=== PATIENT | female | born 1935 | race Caucasian/White ===

== ENCOUNTER 2019-04-23 11:21 | Observation (INO) ==
[2019-04-23] MEDS ORDERED: SODIUM CHLORIDE 0.9% 1,000 ML IV STA (12:40)
[2019-04-23 13:32] LABS: Basophils % 0.5 % (0.0-0.8); Eosinophils # 0.2 10*3/uL (0.0-0.87); Hematocrit 34.5 VOL% (35.7-47.0); Hemoglobin 10.8 GM/DL (12.0-16.0); Immature Granulocytes % 0.5 %; Immature Granulocytes Absolute 0.04 #; Lymphocytes # 1.3 10*3/uL (1.4-4.0); Lymphocytes % 16.1 % (21.3-54.2); Mean Corpuscular HGB Conc 31.3 GM/DL (32-36); Mean Corpuscular Volume 95.6 FL (87-102); Mean Platelet Volume 9.7 FL (9.6-12.0); Monocytes % 7.3 % (1.7-12.7); Neutrophils % 72.6 % (38.7-73.9); Platelet Count 245 T/CUMM (130-400); Red Blood Count 3.61 MC/CUMM (3.8-5.5); Red Cell Distribution Width 13.4 % (9.3-17.3); White Blood Count 8.1 T/CUMM (4-12)
[2019-04-23 13:48] LABS: INR 0.9; PT Patient Result 10.3 SECS; Partial Thromboplastin Time 23.1 SECS (0-40)
[2019-04-23 13:55] LABS: Alanine Aminotransferase 19 U/L (13-56); Albumin 3.3 G/DL (3.4-5.0); Alkaline Phosphatase 100 U/L (45-117); Aspartate Amino Transferase 16 U/L (0-37); Blood Urea Nitrogen 26 MG/DL (7-18); Calcium 9.2 MG/DL (8.5-10.1); Glucose 108 MG/DL (74-106); Osmolality,Calculated 288.1 MOS/KG (273-304); Total Protein 6.4 G/DL (6.4-8.3); Troponin I < 0.015 NG/ML (0.00-0.045)
[2019-04-23 14:05] LABS: Free T4 (Free Thyroxine) 1.31 NG/DL (0.76-1.46); Thyroid Stimulating Hormone 2.33 uIU/ml (0.358-3.74)
[2019-04-23 14:16] LABS: Apearance,Urine CLEAR (Clear); Bilirubin,Urine Negative (Negative); Blood, Urine Negative (Negative); Glucose,Urine (UA) Negative (Negative); Ketones,Urine Negative (Negative); Nitrite,Urine Negative (Negative); Protein,Urine Negative; RBC,Urine <1 /HPF (0-4); Squamous Epithelial Cell,Urine Occasional /HPF (0-10); Urine Color Straw (Yellow); Urine Specific Gravity 1.009 (1.001-1.035); Urine Urobilinogen < 2.0 EU/DL (0.2-1.0); WBC,Urine <1 /HPF (0-6)
[2019-04-23] MEDS ORDERED: DICLOFENAC 1% GEL 100 GM TUBE TOP PRN (18:01)
[2019-04-23] MEDS ORDERED: ONDANSETRON 4 MG/2 ML VIAL IV PRN (18:08)
[2019-04-23] MEDS ORDERED: ACETAMINOPHEN 325 MG TABLET PO PRN (18:08)
[2019-04-23] MEDS ORDERED: ENOXAPARIN 40 MG/0.4 ML SYRINGE SUBCUT SCH (18:30)
[2019-04-24 04:55] LABS: Basophils # 0.1 10*3/uL (0.0-0.2); Basophils % 0.7 % (0.0-0.8); Eosinophils # 0.3 10*3/uL (0.0-0.87); Eosinophils % 3.6 % (0.00-10.9); Hematocrit 30.9 VOL% (35.7-47.0); Hemoglobin 9.6 GM/DL (12.0-16.0); Immature Granulocytes % 0.6 %; Immature Granulocytes Absolute 0.04 #; Lymphocytes # 1.7 10*3/uL (1.4-4.0); Lymphocytes % 22.7 % (21.3-54.2); Mean Corpuscular HGB Conc 31.1 GM/DL (32-36); Mean Corpuscular Volume 96.3 FL (87-102); Mean Platelet Volume 9.9 FL (9.6-12.0); Monocytes % 6.2 % (1.7-12.7); Neutrophils % 66.2 % (38.7-73.9); Platelet Count 211 T/CUMM (130-400); Red Blood Count 3.21 MC/CUMM (3.8-5.5); Red Cell Distribution Width 13.3 % (9.3-17.3); White Blood Count 7.3 T/CUMM (4-12)
[2019-04-24 05:15] LABS: Osmolality,Calculated 294.4 MOS/KG (273-304); Risk Ratio 3.21
[2019-04-24] MEDS: LEVOTHYROXINE 100 MCG TABLET PO SCH (07:13)
[2019-04-24] MEDS: ALLOPURINOL 100 MG TABLET PO SCH (10:27)
[2019-04-24] MEDS: ATORVASTATIN 20 MG TABLET PO SCH (10:27)
[2019-04-24] MEDS: PANTOPRAZOLE 40 MG TABLET PO SCH (10:27)
[2019-04-24] MEDS: ASPIRIN EC 81 MG TABLET PO SCH (10:27)
[2019-04-24] MEDS: FLUTICASONE 50 MCG NASAL SPRAY 16 GM BOTTLE BOTH NARES SCH (10:27)
[2019-04-24] MEDS: FERROUS SULFATE 325 MG TABLET PO SCH (12:13)
[2019-04-24] MEDS: METOPROLOL TARTRATE 25 MG TABLET PO SCH ×2 (12:13→21:07)
[2019-04-24] MEDS: FUROSEMIDE 40 MG TABLET PO SCH ×2 (12:13→21:07)
[2019-04-24] MEDS: LOSARTAN 50 MG TABLET PO SCH (12:13)
[2019-04-24] MEDS: ENOXAPARIN 40 MG/0.4 ML SYRINGE SUBCUT SCH (21:07)
[2019-04-24] MEDS ORDERED: hydrALAZINE 20 MG/1 ML VIAL IV PRN (21:18)
[2019-04-25] MEDS: LEVOTHYROXINE 100 MCG TABLET PO SCH (06:19)
[2019-04-25] MEDS: LOSARTAN 50 MG TABLET PO SCH (09:50)
[2019-04-25] MEDS: ATORVASTATIN 20 MG TABLET PO SCH (09:50)
[2019-04-25] MEDS: PANTOPRAZOLE 40 MG TABLET PO SCH (09:50)
[2019-04-25] MEDS: METOPROLOL TARTRATE 25 MG TABLET PO SCH ×2 (09:50→21:07)
[2019-04-25] MEDS: FLUTICASONE 50 MCG NASAL SPRAY 16 GM BOTTLE BOTH NARES SCH (09:51)
[2019-04-25] MEDS: ASPIRIN EC 81 MG TABLET PO SCH (09:51)
[2019-04-25] MEDS: FUROSEMIDE 40 MG TABLET PO SCH ×2 (09:51→21:07)
[2019-04-25] MEDS: ALLOPURINOL 100 MG TABLET PO SCH (09:51)
[2019-04-25] MEDS: FERROUS SULFATE 325 MG TABLET PO SCH (12:19)
[2019-04-25] MEDS ORDERED: LOSARTAN 25 MG TABLET PO ONE (14:12)
[2019-04-25] MEDS: ENOXAPARIN 40 MG/0.4 ML SYRINGE SUBCUT SCH (21:07)
[2019-04-26] MEDS: LEVOTHYROXINE 100 MCG TABLET PO SCH (06:17)
[2019-04-26] MEDS ORDERED: LOSARTAN 50 MG TABLET PO SCH (09:00)
[2019-04-26] MEDS: ALLOPURINOL 100 MG TABLET PO SCH (09:59)
[2019-04-26] MEDS: ATORVASTATIN 20 MG TABLET PO SCH (09:59)
[2019-04-26] MEDS: FUROSEMIDE 40 MG TABLET PO SCH (10:00)
[2019-04-26] MEDS: PANTOPRAZOLE 40 MG TABLET PO SCH (10:00)
[2019-04-26] MEDS: METOPROLOL TARTRATE 25 MG TABLET PO SCH ×2 (10:01→20:24)
[2019-04-26] MEDS: FLUTICASONE 50 MCG NASAL SPRAY 16 GM BOTTLE BOTH NARES SCH (10:02)
[2019-04-26] MEDS: ASPIRIN EC 81 MG TABLET PO SCH (10:04)
[2019-04-26] MEDS ORDERED: amLODIPine 10 MG TABLET PO SCH (11:05)
[2019-04-26] MEDS: FERROUS SULFATE 325 MG TABLET PO SCH (12:50)
[2019-04-26] MEDS: ENOXAPARIN 40 MG/0.4 ML SYRINGE SUBCUT SCH (21:48)
[2019-04-27] MEDS: LEVOTHYROXINE 100 MCG TABLET PO SCH (06:18)
[2019-04-27] MEDS: METOPROLOL TARTRATE 25 MG TABLET PO SCH (09:00)
[2019-04-27] MEDS ORDERED: LOSARTAN 25 MG TABLET PO SCH (09:00)
[2019-04-27] MEDS: ATORVASTATIN 20 MG TABLET PO SCH (09:00)
[2019-04-27] MEDS: FLUTICASONE 50 MCG NASAL SPRAY 16 GM BOTTLE BOTH NARES SCH (09:00)
[2019-04-27] MEDS: PANTOPRAZOLE 40 MG TABLET PO SCH (09:00)
[2019-04-27] MEDS: ALLOPURINOL 100 MG TABLET PO SCH (09:00)
[2019-04-27] MEDS ORDERED: FUROSEMIDE 40 MG TABLET PO SCH (09:00)
[2019-04-27] MEDS: ASPIRIN EC 81 MG TABLET PO SCH (09:01)
[2019-04-27] MEDS: FERROUS SULFATE 325 MG TABLET PO SCH (11:47)
[2019-04-27 12:41] VITALS: BP 121/59
[2019-04-27] MEDS ORDERED: MAGNESIUM HYDROXIDE SUSP 30 ML UDCUP PO ONE (12:55)
== END 2019-04-27 13:30 | disposition home or self-care (01) ==
LOC: N.ED 11:21 → N.EDINP 11:21 → SUATTDRO 18:08 → N.5E 19:01
PROVIDERS: ADMIT Family Medicine; ATTEND Internal Medicine

== ENCOUNTER 2019-06-09 14:30 | Inpatient (IN) ==
[2019-06-09] MEDS ORDERED: ONDANSETRON 4 MG/2 ML VIAL IV PRN (18:47)
[2019-06-09] MEDS ORDERED: MORPHINE 4 MG/1 ML VIAL IV PRN (18:47)
[2019-06-09] MEDS ORDERED: DEXTROSE 5% NACL 0.9% 1,000 ML IV SCH (19:00)
[2019-06-09 20:00] LABS: Basophils % 0.3 % (0.0-0.8); Eosinophils # 0.2 10*3/uL (0.0-0.87); Eosinophils % 2.3 % (0.00-10.9); Hematocrit 34.7 VOL% (35.7-47.0); Hemoglobin 10.5 GM/DL (12.0-16.0); Immature Granulocytes % 0.5 %; Immature Granulocytes Absolute 0.05 #; Lymphocytes # 1.4 10*3/uL (1.4-4.0); Lymphocytes % 13.9 % (21.3-54.2); Mean Corpuscular HGB Conc 30.3 GM/DL (32-36); Mean Corpuscular Volume 96.7 FL (87-102); Mean Platelet Volume 9.5 FL (9.6-12.0); Monocytes % 7.3 % (1.7-12.7); Neutrophils % 75.7 % (38.7-73.9); Platelet Count 273 T/CUMM (130-400); Red Blood Count 3.59 MC/CUMM (3.8-5.5); Red Cell Distribution Width 14.3 % (9.3-17.3); White Blood Count 10.2 T/CUMM (4-12)
[2019-06-09] MEDS: DEXTROSE 5% NACL 0.9% 1,000 ML IV SCH (20:25)
[2019-06-09] MEDS: ENOXAPARIN 30 MG/0.3 ML SYRINGE SUBCUT SCH (20:28)
[2019-06-09] MEDS: PANTOPRAZOLE 40 MG VIAL IV SCH (22:53)
[2019-06-10] MEDS: DEXTROSE 5% NACL 0.9% 1,000 ML IV SCH ×2 (06:02→14:59)
[2019-06-10 06:37] LABS: Basophils % 0.5 % (0.0-0.8); Eosinophils # 0.3 10*3/uL (0.0-0.87); Eosinophils % 3.4 % (0.00-10.9); Hematocrit 33.3 VOL% (35.7-47.0); Hemoglobin 10.3 GM/DL (12.0-16.0); Immature Granulocytes % 0.5 %; Immature Granulocytes Absolute 0.04 #; Lymphocytes # 1.3 10*3/uL (1.4-4.0); Lymphocytes % 16.9 % (21.3-54.2); Mean Corpuscular HGB Conc 30.9 GM/DL (32-36); Mean Corpuscular Volume 97.1 FL (87-102); Mean Platelet Volume 9.6 FL (9.6-12.0); Neutrophils % 70.7 % (38.7-73.9); Platelet Count 244 T/CUMM (130-400); Red Blood Count 3.43 MC/CUMM (3.8-5.5); Red Cell Distribution Width 14.5 % (9.3-17.3); White Blood Count 7.6 T/CUMM (4-12)
[2019-06-10 06:50] LABS: Albumin 2.7 G/DL (3.4-5.0); Bilirubin,Total 0.9 MG/DL (0.2-1.0); Calcium 8.4 MG/DL (8.5-10.1); Osmolality,Calculated 289.8 MOS/KG (273-304); Total Protein 5.9 G/DL (6.4-8.3)
[2019-06-10] MEDS: PANTOPRAZOLE 40 MG VIAL IV SCH ×2 (09:04→21:35)
[2019-06-10] MEDS ORDERED: PHENOL 1.4% THROAT SPRAY 177 ML BOTTLE PO PRN (13:29)
[2019-06-10] MEDS: ENOXAPARIN 30 MG/0.3 ML SYRINGE SUBCUT SCH (21:12)
[2019-06-11] MEDS: DEXTROSE 5% NACL 0.9% 1,000 ML IV SCH ×2 (03:21→12:25)
[2019-06-11 05:27] LABS: Basophils % 0.4 % (0.0-0.8); Eosinophils # 0.2 10*3/uL (0.0-0.87); Eosinophils % 2.6 % (0.00-10.9); Hematocrit 33.6 VOL% (35.7-47.0); Hemoglobin 10.6 GM/DL (12.0-16.0); Immature Granulocytes % 0.5 %; Immature Granulocytes Absolute 0.05 #; Lymphocytes % 11.3 % (21.3-54.2); Mean Corpuscular HGB Conc 31.5 GM/DL (32-36); Mean Corpuscular Volume 96.3 FL (87-102); Mean Platelet Volume 9.8 FL (9.6-12.0); Monocytes % 7.3 % (1.7-12.7); Neutrophils % 77.9 % (38.7-73.9); Platelet Count 248 T/CUMM (130-400); Red Blood Count 3.49 MC/CUMM (3.8-5.5); Red Cell Distribution Width 14.3 % (9.3-17.3); White Blood Count 9.2 T/CUMM (4-12)
[2019-06-11 06:24] LABS: Albumin 2.9 G/DL (3.4-5.0); Bilirubin,Total 0.9 MG/DL (0.2-1.0); Calcium 8.3 MG/DL (8.5-10.1); Osmolality,Calculated 288.8 MOS/KG (273-304); Total Protein 6.2 G/DL (6.4-8.3)
[2019-06-11] MEDS ORDERED: DICLOFENAC 1% GEL 100 GM TUBE TOP PRN (07:03)
[2019-06-11] MEDS ORDERED: CYANOCOBALAMIN 1000 MCG/1 ML VIAL IM SCH (07:30)
[2019-06-11] MEDS: CARBIDOPA/LEVODOPA 25-100 MG TABLET PO SCH ×3 (08:27→17:20)
[2019-06-11] MEDS: LEVOTHYROXINE 100 MCG TABLET PO SCH (08:27)
[2019-06-11] MEDS: ATORVASTATIN 20 MG TABLET PO SCH (08:28)
[2019-06-11] MEDS: METOPROLOL TARTRATE 25 MG TABLET PO SCH ×2 (08:28→20:38)
[2019-06-11] MEDS: PANTOPRAZOLE 40 MG VIAL IV SCH (08:28)
[2019-06-11] MEDS: POLYETHYLENE GLYCOL POWDER 17 GM PACK PO SCH (08:28)
[2019-06-11] MEDS: ALLOPURINOL 100 MG TABLET PO SCH (08:28)
[2019-06-11] MEDS: ASPIRIN EC 81 MG TABLET PO SCH (08:28)
[2019-06-11] MEDS: FUROSEMIDE 40 MG TABLET PO SCH ×2 (08:28→20:38)
[2019-06-11] MEDS: FLUTICASONE 50 MCG NASAL SPRAY 16 GM BOTTLE BOTH NARES SCH (08:39)
[2019-06-11] MEDS ORDERED: LOSARTAN 25 MG TABLET PO SCH (09:00)
[2019-06-11 10:47] LABS: Amorphous Crystals,Urine Occasional /HPF (Few); Apearance,Urine CLOUDY (Clear); Bilirubin,Urine Negative (Negative); Blood, Urine Moderate mg/dL (Negative); Glucose,Urine (UA) Negative (Negative); Ketones,Urine Negative (Negative); Nitrite,Urine Positive (Negative); Protein,Urine Negative; RBC,Urine 66 /HPF (0-4); Squamous Epithelial Cell,Urine Occasional /HPF (0-10); Urine Color Yellow (Yellow); Urine Specific Gravity 1.014 (1.001-1.035); WBC,Urine 368 /HPF (0-6)
[2019-06-11] MEDS: CIPROFLOXACIN 500 MG TABLET PO SCH ×2 (13:50→20:38)
[2019-06-11] MEDS: ENOXAPARIN 30 MG/0.3 ML SYRINGE SUBCUT SCH (20:39)
[2019-06-12 05:29] LABS: Basophils % 0.4 % (0.0-0.8); Eosinophils # 0.3 10*3/uL (0.0-0.87); Hematocrit 32.1 VOL% (35.7-47.0); Hemoglobin 10.2 GM/DL (12.0-16.0); Immature Granulocytes % 0.5 %; Immature Granulocytes Absolute 0.04 #; Lymphocytes # 1.4 10*3/uL (1.4-4.0); Lymphocytes % 16.8 % (21.3-54.2); Mean Corpuscular HGB Conc 31.8 GM/DL (32-36); Mean Corpuscular Volume 95.8 FL (87-102); Mean Platelet Volume 9.6 FL (9.6-12.0); Monocytes % 7.5 % (1.7-12.7); Neutrophils % 70.8 % (38.7-73.9); Platelet Count 222 T/CUMM (130-400); Red Blood Count 3.35 MC/CUMM (3.8-5.5); Red Cell Distribution Width 14.1 % (9.3-17.3)
[2019-06-12 06:11] LABS: Calcium 8.6 MG/DL (8.5-10.1); Osmolality,Calculated 281.3 MOS/KG (273-304)
[2019-06-12 06:17] LABS: Free T4 (Free Thyroxine) 0.9 NG/DL (0.76-1.46); Thyroid Stimulating Hormone 13.1 uIU/ml (0.358-3.74)
[2019-06-12] MEDS: LEVOTHYROXINE 100 MCG TABLET PO SCH (06:18)
[2019-06-12] MEDS: CIPROFLOXACIN 500 MG TABLET PO SCH (09:10)
[2019-06-12] MEDS: CARBIDOPA/LEVODOPA 25-100 MG TABLET PO SCH (09:10)
[2019-06-12] MEDS: FUROSEMIDE 40 MG TABLET PO SCH (09:11)
[2019-06-12] MEDS: ASPIRIN EC 81 MG TABLET PO SCH (09:11)
[2019-06-12] MEDS: ATORVASTATIN 20 MG TABLET PO SCH (09:11)
[2019-06-12] MEDS: ALLOPURINOL 100 MG TABLET PO SCH (09:11)
[2019-06-12] MEDS: POLYETHYLENE GLYCOL POWDER 17 GM PACK PO SCH (09:12)
[2019-06-12] MEDS: FLUTICASONE 50 MCG NASAL SPRAY 16 GM BOTTLE BOTH NARES SCH (09:12)
[2019-06-12 12:39] VITALS: BP 156/68
== END 2019-06-12 12:31 | DRG 445 ==
LOC: SUATTDRO 17:53 → N.5E 17:53
PROVIDERS: ADMIT Internal Medicine; ATTEND Family Medicine

== ENCOUNTER 2021-08-24 17:58 | Inpatient (IN) ==
[2021-08-24] MEDS ORDERED: SODIUM CHLORIDE 0.9% 500 ML IV STA (18:31)
[2021-08-24 18:52] LABS: Basophils % 0.2 % (0.0-0.8); Eosinophils # 0.1 10*3/uL (0.0-0.87); Eosinophils % 0.3 % (0.00-10.9); Hematocrit 33.2 VOL% (35.7-47.0); Hemoglobin 10.5 GM/DL (12.0-16.0); Immature Granulocytes % 1.5 %; Immature Granulocytes Absolute 0.28 #; Lymphocytes # 1.2 10*3/uL (1.4-4.0); Lymphocytes % 6.4 % (21.3-54.2); Mean Corpuscular HGB Conc 31.6 GM/DL (32-36); Mean Platelet Volume 8.7 FL (9.6-12.0); Monocytes % 6.1 % (1.7-12.7); Neutrophils % 85.5 % (38.7-73.9); Platelet Count 266 T/CUMM (130-400); Red Blood Count 3.73 MC/CUMM (3.8-5.5); White Blood Count 18.1 T/CUMM (4-12)
[2021-08-24 19:16] LABS: Alanine Aminotransferase < 6 U/L (13-56); Albumin 2.8 G/DL (3.4-5.0); Alkaline Phosphatase 112 U/L (45-117); Aspartate Amino Transferase 14 U/L (0-37); Blood Urea Nitrogen 71 MG/DL (7-18); Calcium 9.1 MG/DL (8.5-10.1); Carbon Dioxide 30 MMOL/L (21-32); Estimated Glom Filtration Rate 15 ML/MIN; Glucose 114 MG/DL (74-106); Osmolality,Calculated 283.7 MOS/KG (273-304); Potassium 3.2 MMOL/L (3.5-5.1); Sodium 131 MMOL/L (136-145); Total Protein 7.1 G/DL (6.4-8.2)
[2021-08-24 20:02] LABS: Amorphous Crystals,Urine Occasional /HPF (Few); Bacteria,Urine Occasional /HPF (Few); Bilirubin,Urine Negative (Negative); Blood, Urine Negative (Negative); Glucose,Urine (UA) Negative (Negative); Ketones,Urine Negative (Negative); Nitrite,Urine Negative (Negative); Protein,Urine Negative; Squamous Epithelial Cell,Urine Occasional /HPF (0-10); Urine Appearance CLOUDY (Clear); Urine Color Yellow (Yellow); Urine Specific Gravity 1.011 (1.001-1.035); Urine Urobilinogen < 2.0 EU/DL (0.2-1.0)
[2021-08-24] MEDS ORDERED: PIPERACILLIN/TAZOBACTAM 3,375 MG in SODIUM CHLORIDE 0.9% 100 ML IV STA (20:07)
[2021-08-24] MEDS ORDERED: DEXTROSE 50% 25 GM/50 ML VIAL IV PRN (21:45)
[2021-08-24] MEDS ORDERED: GLUCAGON 1 MG VIAL IM PRN (21:45)
[2021-08-24] MEDS ORDERED: ACETAMINOPHEN 325 MG TABLET PO PRN (21:58)
[2021-08-24] MEDS ORDERED: guaiFENesin 200 MG/10 ML UDCUP PO PRN (23:15)
[2021-08-24] MEDS: SODIUM CHLORIDE 0.9% 1,000 ML IV SCH (23:36)
[2021-08-25 05:44] LABS: Basophils # 0.1 10*3/uL (0.0-0.2); Basophils % 0.4 % (0.0-0.8); Eosinophils # 0.2 10*3/uL (0.0-0.87); Eosinophils % 1.5 % (0.00-10.9); Hematocrit 32.6 VOL% (35.7-47.0); Hemoglobin 10.2 GM/DL (12.0-16.0); Immature Granulocytes % 1.7 %; Lymphocytes # 1.2 10*3/uL (1.4-4.0); Mean Corpuscular HGB Conc 31.3 GM/DL (32-36); Mean Corpuscular Volume 90.3 FL (87-102); Monocytes % 7.7 % (1.7-12.7); Neutrophils % 78.7 % (38.7-73.9); Platelet Count 242 T/CUMM (130-400); Red Blood Count 3.61 MC/CUMM (3.8-5.5); Red Cell Distribution Width 16.9 % (9.3-17.3); White Blood Count 11.7 T/CUMM (4-12)
[2021-08-25] MEDS: LEVOTHYROXINE 100 MCG TABLET PO SCH (05:48)
[2021-08-25 06:25] LABS: Calcium 8.8 MG/DL (8.5-10.1); Osmolality,Calculated 281.7 MOS/KG (273-304); Potassium 3.1 MMOL/L (3.5-5.1); Risk Ratio 3.52; Thyroid Stimulating Hormone 0.824 uIU/ml (0.358-3.74); VLDL Cholesterol 37.2 MG/DL
[2021-08-25] MEDS ORDERED: PIPERACILLIN/TAZOBACTAM 3,375 MG in SODIUM CHLORIDE 0.9% 100 ML IV SCH (09:00)
[2021-08-25] MEDS ORDERED: POLYETHYLENE GLYCOL POWDER 17 GM PACK PO SCH (09:00)
[2021-08-25] MEDS: CARBIDOPA/LEVODOPA 25-100 MG TABLET PO SCH ×3 (10:16→17:14)
[2021-08-25] MEDS: ASPIRIN EC 81 MG TABLET PO SCH (10:16)
[2021-08-25] MEDS: DOCUSATE SODIUM 100 MG CAPSULE PO SCH ×2 (10:17→21:00)
[2021-08-25] MEDS: MULTIVITAMIN (CENTRUM) TABLET PO SCH (10:17)
[2021-08-25] MEDS: POTASSIUM CHLORIDE 20 MEQ TABLET PO SCH (10:18)
[2021-08-25] MEDS: ATORVASTATIN 20 MG TABLET PO SCH (10:18)
[2021-08-25] MEDS: FLUTICASONE 50 MCG NASAL SPRAY 16 GM BOTTLE BOTH NARES SCH (10:18)
[2021-08-25] MEDS: FERROUS SULFATE 325 MG TABLET PO SCH (10:18)
[2021-08-25] MEDS: ENOXAPARIN 30 MG/0.3 ML SYRINGE SUBCUT SCH (10:19)
[2021-08-25] MEDS: POTASSIUM CHLORIDE RIDER 10 MEQ/100 ML PREMIX IV PRN ×3 (10:30→17:12)
[2021-08-25] MEDS: allopurinoL 100 MG TABLET PO SCH (10:30)
[2021-08-25] MEDS: MULTIVITAMIN (OCUVITE) TABLET PO SCH (10:30)
[2021-08-25] MEDS: PANTOPRAZOLE 40 MG TABLET PO SCH (10:30)
[2021-08-25] MEDS ORDERED: cefTRIAXone 1,000 MG in SODIUM CHLORIDE 0.9% 100 ML IV SCH (15:00)
[2021-08-25] MEDS: DILTIAZEM CD 120 MG CAPSULE PO SCH (17:14)
[2021-08-25] MEDS: METOPROLOL TARTRATE 25 MG TABLET PO SCH (17:14)
[2021-08-25] MEDS ORDERED: DILTIAZEM 50 MG/10 ML VIAL IV ONE (20:32)
[2021-08-25] MEDS: POLYETHYLENE GLYCOL POWDER 17 GM PACK PO SCH (21:00)
[2021-08-25] MEDS: DILTIAZEM INJ 100 MG in SODIUM CHLORIDE 0.9% 100 ML IV SCH (22:17)
[2021-08-25] MEDS: SODIUM CHLORIDE 0.9% 1,000 ML IV SCH (22:27)
[2021-08-25] MEDS: ONDANSETRON 4 MG/2 ML VIAL IV PRN (23:08)
[2021-08-26 05:31] LABS: Basophils # 0.1 10*3/uL (0.0-0.2); Basophils % 0.5 % (0.0-0.8); Eosinophils # 0.1 10*3/uL (0.0-0.87); Eosinophils % 0.4 % (0.00-10.9); Hemoglobin 10.6 GM/DL (12.0-16.0); Immature Granulocytes % 1.5 %; Immature Granulocytes Absolute 0.23 #; Lymphocytes # 1.1 10*3/uL (1.4-4.0); Lymphocytes % 7.1 % (21.3-54.2); Mean Corpuscular HGB Conc 31.2 GM/DL (32-36); Mean Platelet Volume 8.6 FL (9.6-12.0); Monocytes % 5.3 % (1.7-12.7); Neutrophils % 85.2 % (38.7-73.9); Platelet Count 248 T/CUMM (130-400); Red Blood Count 3.82 MC/CUMM (3.8-5.5); Red Cell Distribution Width 17.2 % (9.3-17.3); White Blood Count 14.9 T/CUMM (4-12)
[2021-08-26 05:49] LABS: Calcium 9.3 MG/DL (8.5-10.1); Osmolality,Calculated 285.8 MOS/KG (273-304); Potassium 2.8 MMOL/L (3.5-5.1)
[2021-08-26] MEDS: LEVOTHYROXINE 100 MCG TABLET PO SCH (06:00)
[2021-08-26] MEDS: ONDANSETRON 4 MG/2 ML VIAL IV PRN (08:19)
[2021-08-26] MEDS: SODIUM CHLORIDE 0.9% 1,000 ML IV SCH ×3 (08:19→20:21)
[2021-08-26] MEDS ORDERED: DILTIAZEM CD 120 MG CAPSULE PO SCH (09:00)
[2021-08-26] MEDS: allopurinoL 100 MG TABLET PO SCH ×2 (10:15→13:09)
[2021-08-26] MEDS: ENOXAPARIN 30 MG/0.3 ML SYRINGE SUBCUT SCH ×2 (10:15→13:08)
[2021-08-26] MEDS: CARBIDOPA/LEVODOPA 25-100 MG TABLET PO SCH ×3 (10:15→18:46)
[2021-08-26] MEDS: FERROUS SULFATE 325 MG TABLET PO SCH ×2 (10:15→13:08)
[2021-08-26] MEDS: DOCUSATE SODIUM 100 MG CAPSULE PO SCH ×3 (10:15→20:23)
[2021-08-26] MEDS: POTASSIUM CHLORIDE 20 MEQ TABLET PO SCH ×2 (10:16→13:08)
[2021-08-26] MEDS: MULTIVITAMIN (CENTRUM) TABLET PO SCH ×2 (10:16→13:07)
[2021-08-26] MEDS: POTASSIUM CHLORIDE 20 MEQ TABLET PO PRN (10:16)
[2021-08-26] MEDS: DILTIAZEM CD 120 MG CAPSULE PO SCH ×2 (10:17→13:07)
[2021-08-26] MEDS: MULTIVITAMIN (OCUVITE) TABLET PO SCH ×2 (10:17→13:08)
[2021-08-26] MEDS: ASPIRIN EC 81 MG TABLET PO SCH ×2 (10:17→13:07)
[2021-08-26] MEDS: PANTOPRAZOLE 40 MG TABLET PO SCH ×2 (10:17→13:08)
[2021-08-26] MEDS: METOPROLOL TARTRATE 25 MG TABLET PO SCH ×3 (10:17→18:46)
[2021-08-26] MEDS: ATORVASTATIN 20 MG TABLET PO SCH ×2 (10:18→13:08)
[2021-08-26] MEDS: POTASSIUM CHLORIDE RIDER 10 MEQ/100 ML PREMIX IV PRN ×4 (11:19→17:38)
[2021-08-26] MEDS ORDERED: PROMETHAZINE INJ 12.5 MG in SODIUM CHLORIDE 0.9% 50 ML IV PRN (12:14)
[2021-08-26] MEDS: POLYETHYLENE GLYCOL POWDER 17 GM PACK PO SCH ×2 (13:03→20:24)
[2021-08-26] MEDS: FLUTICASONE 50 MCG NASAL SPRAY 16 GM BOTTLE BOTH NARES SCH (13:08)
[2021-08-26] MEDS: MORPHINE 2 MG/1 ML SYRINGE IV PRN (14:49)
[2021-08-26] MEDS: DILTIAZEM INJ 100 MG in SODIUM CHLORIDE 0.9% 100 ML IV SCH ×2 (14:51→22:09)
[2021-08-26] MEDS ORDERED: BISACODYL 5 MG TABLET PO ONE (15:00)
[2021-08-26] MEDS ORDERED: POLYETHYLENE GLYCOL POWDER 255 GM BOTTLE PO ONE (18:00)
[2021-08-26] MEDS: PIPERACILLIN/TAZOBACTAM 3,375 MG in SODIUM CHLORIDE 0.9% 100 ML IV SCH ×2 (20:25→21:54)
[2021-08-27] MEDS: POTASSIUM CHLORIDE RIDER 10 MEQ/100 ML PREMIX IV PRN ×4 (02:16→05:12)
[2021-08-27] MEDS ORDERED: POLYETHYLENE GLYCOL POWDER 255 GM BOTTLE PO ONE ×2 (05:00→08:20)
[2021-08-27] MEDS: SODIUM CHLORIDE 0.9% 1,000 ML IV SCH ×2 (05:12→15:16)
[2021-08-27] MEDS: LEVOTHYROXINE 100 MCG TABLET PO SCH (05:13)
[2021-08-27 05:22] LABS: INR 1.2; PT Patient Result 12.9 SECS (10.5-12.0)
[2021-08-27] MEDS: PIPERACILLIN/TAZOBACTAM 3,375 MG in SODIUM CHLORIDE 0.9% 100 ML IV SCH ×3 (06:35→21:33)
[2021-08-27 08:47] LABS: Basophils # 0.1 10*3/uL (0.0-0.2); Basophils % 0.3 % (0.0-0.8); Eosinophils # 0.1 10*3/uL (0.0-0.87); Eosinophils % 0.8 % (0.00-10.9); Hemoglobin 10.9 GM/DL (12.0-16.0); Immature Granulocytes % 2.3 %; Immature Granulocytes Absolute 0.35 #; Lymphocytes # 0.9 10*3/uL (1.4-4.0); Lymphocytes % 6.2 % (21.3-54.2); Mean Corpuscular HGB Conc 30.3 GM/DL (32-36); Mean Corpuscular Volume 92.1 FL (87-102); Mean Platelet Volume 8.8 FL (9.6-12.0); Monocytes % 7.2 % (1.7-12.7); Neutrophils % 83.2 % (38.7-73.9); Platelet Count 264 T/CUMM (130-400); Red Blood Count 3.91 MC/CUMM (3.8-5.5); Red Cell Distribution Width 17.6 % (9.3-17.3); White Blood Count 15.1 T/CUMM (4-12)
[2021-08-27 08:56] LABS: Osmolality,Calculated 281.8 MOS/KG (273-304); Potassium 3.5 MMOL/L (3.5-5.1)
[2021-08-27] MEDS: PANTOPRAZOLE 40 MG VIAL IV SCH ×2 (10:52→21:33)
[2021-08-27] MEDS: ENOXAPARIN 30 MG/0.3 ML SYRINGE SUBCUT SCH (10:54)
[2021-08-27] MEDS: DILTIAZEM CD 120 MG CAPSULE PO SCH (10:57)
[2021-08-27] MEDS: METOPROLOL TARTRATE 25 MG TABLET PO SCH ×2 (10:57→18:17)
[2021-08-27] MEDS: FLUTICASONE 50 MCG NASAL SPRAY 16 GM BOTTLE BOTH NARES SCH (11:23)
[2021-08-27] MEDS: CARBIDOPA/LEVODOPA 25-100 MG TABLET PO SCH ×3 (12:47→18:17)
[2021-08-27] MEDS: MULTIVITAMIN (CENTRUM) TABLET PO SCH (12:48)
[2021-08-27] MEDS: DOCUSATE SODIUM 100 MG CAPSULE PO SCH ×2 (12:48→21:34)
[2021-08-27] MEDS: POTASSIUM CHLORIDE 20 MEQ TABLET PO SCH (12:48)
[2021-08-27] MEDS: FERROUS SULFATE 325 MG TABLET PO SCH (12:48)
[2021-08-27] MEDS: ASPIRIN EC 81 MG TABLET PO SCH (12:48)
[2021-08-27] MEDS: ATORVASTATIN 20 MG TABLET PO SCH (12:49)
[2021-08-27] MEDS: allopurinoL 100 MG TABLET PO SCH (12:49)
[2021-08-27] MEDS: POLYETHYLENE GLYCOL POWDER 17 GM PACK PO SCH ×2 (12:55→21:34)
[2021-08-27] MEDS: MULTIVITAMIN (OCUVITE) TABLET PO SCH (12:55)
[2021-08-28] MEDS: POTASSIUM CHLORIDE RIDER 10 MEQ/100 ML PREMIX IV PRN ×4 (02:47→11:20)
[2021-08-28] MEDS: PIPERACILLIN/TAZOBACTAM 3,375 MG in SODIUM CHLORIDE 0.9% 100 ML IV SCH ×3 (05:47→22:25)
[2021-08-28 05:49] LABS: Basophils # 0.1 10*3/uL (0.0-0.2); Basophils % 0.4 % (0.0-0.8); Eosinophils # 0.1 10*3/uL (0.0-0.87); Eosinophils % 0.6 % (0.00-10.9); Hematocrit 32.2 VOL% (35.7-47.0); Hemoglobin 10.2 GM/DL (12.0-16.0); Immature Granulocytes % 2.1 %; Immature Granulocytes Absolute 0.37 #; Lymphocytes # 0.8 10*3/uL (1.4-4.0); Lymphocytes % 4.5 % (21.3-54.2); Mean Corpuscular HGB Conc 31.7 GM/DL (32-36); Mean Corpuscular Volume 91.2 FL (87-102); Mean Platelet Volume 8.2 FL (9.6-12.0); Monocytes % 6.9 % (1.7-12.7); Neutrophils % 85.5 % (38.7-73.9); Platelet Count 227 T/CUMM (130-400); Red Blood Count 3.53 MC/CUMM (3.8-5.5); Red Cell Distribution Width 17.5 % (9.3-17.3); White Blood Count 17.9 T/CUMM (4-12)
[2021-08-28 06:11] LABS: Hypochromasia 1+; Lymphocytes 7 % (20-55); Microcytosis 1+; Platelet Estimate Adequate; Segmented Neutrophils 90 % (50-85); Total Cells Counted 100
[2021-08-28 06:12] LABS: Calcium 8.9 MG/DL (8.5-10.1); Osmolality,Calculated 287.3 MOS/KG (273-304); Potassium 3.4 MMOL/L (3.5-5.1)
[2021-08-28] MEDS ORDERED: POTASSIUM CHLORIDE RIDER 20 MEQ/100 ML PREMIX IV PRN (08:05)
[2021-08-28] MEDS: PANTOPRAZOLE 40 MG VIAL IV SCH ×2 (08:35→22:27)
[2021-08-28] MEDS: CARBIDOPA/LEVODOPA 25-100 MG TABLET PO SCH ×3 (10:21→17:42)
[2021-08-28] MEDS: LEVOTHYROXINE 100 MCG TABLET PO SCH (10:21)
[2021-08-28] MEDS ORDERED: propofoL 200 MG/20 ML VIAL IV ONE (13:21)
[2021-08-28] MEDS ORDERED: ETOMIDATE 20 MG/10 ML VIAL IV ONE (13:21)
[2021-08-28] MEDS ORDERED: LIDOCAINE 2% 5 ML VIAL ONE (13:21)
[2021-08-28] MEDS: SODIUM CHLORIDE 0.9% 1,000 ML IV SCH ×3 (14:13→22:28)
[2021-08-28] MEDS: LACTULOSE 20 GM/30 ML UDCUP PO SCH ×2 (15:45→22:27)
[2021-08-28] MEDS: DILTIAZEM CD 120 MG CAPSULE PO SCH (16:09)
[2021-08-28] MEDS: DOCUSATE SODIUM 100 MG CAPSULE PO SCH (16:10)
[2021-08-28] MEDS: ASPIRIN EC 81 MG TABLET PO SCH (16:10)
[2021-08-28] MEDS: METOPROLOL TARTRATE 25 MG TABLET PO SCH ×2 (16:10→17:42)
[2021-08-28] MEDS: MULTIVITAMIN (CENTRUM) TABLET PO SCH (16:10)
[2021-08-28] MEDS: POTASSIUM CHLORIDE 20 MEQ TABLET PO SCH ×2 (16:11→17:10)
[2021-08-28] MEDS: ATORVASTATIN 20 MG TABLET PO SCH (16:11)
[2021-08-28] MEDS: FERROUS SULFATE 325 MG TABLET PO SCH (16:11)
[2021-08-28] MEDS: FLUTICASONE 50 MCG NASAL SPRAY 16 GM BOTTLE BOTH NARES SCH (16:11)
[2021-08-28] MEDS: MULTIVITAMIN (OCUVITE) TABLET PO SCH (16:12)
[2021-08-28] MEDS: POLYETHYLENE GLYCOL POWDER 17 GM PACK PO SCH (16:12)
[2021-08-28] MEDS: ENOXAPARIN 30 MG/0.3 ML SYRINGE SUBCUT SCH (16:16)
[2021-08-28] MEDS: allopurinoL 100 MG TABLET PO SCH (16:21)
[2021-08-29] MEDS: POLYETHYLENE GLYCOL POWDER 17 GM PACK PO SCH ×3 (06:02→23:24)
[2021-08-29] MEDS: DOCUSATE SODIUM 100 MG CAPSULE PO SCH ×3 (06:02→23:24)
[2021-08-29] MEDS: LEVOTHYROXINE 100 MCG TABLET PO SCH (06:15)
[2021-08-29] MEDS: PIPERACILLIN/TAZOBACTAM 3,375 MG in SODIUM CHLORIDE 0.9% 100 ML IV SCH (06:17)
[2021-08-29 07:38] LABS: Basophils # 0.1 10*3/uL (0.0-0.2); Basophils % 0.9 % (0.0-0.8); Eosinophils # 0.2 10*3/uL (0.0-0.87); Eosinophils % 1.3 % (0.00-10.9); Hematocrit 32.3 VOL% (35.7-47.0); Hemoglobin 9.8 GM/DL (12.0-16.0); Immature Granulocytes % 2.5 %; Lymphocytes # 1.1 10*3/uL (1.4-4.0); Lymphocytes % 9.6 % (21.3-54.2); Mean Corpuscular HGB Conc 30.3 GM/DL (32-36); Mean Corpuscular Volume 93.6 FL (87-102); Mean Platelet Volume 8.8 FL (9.6-12.0); Neutrophils % 79.7 % (38.7-73.9); Platelet Count 208 T/CUMM (130-400); Red Blood Count 3.45 MC/CUMM (3.8-5.5); Red Cell Distribution Width 17.7 % (9.3-17.3); White Blood Count 11.9 T/CUMM (4-12)
[2021-08-29 08:03] LABS: Calcium 8.7 MG/DL (8.5-10.1)
[2021-08-29] MEDS: ONDANSETRON 4 MG/2 ML VIAL IV PRN (08:06)
[2021-08-29] MEDS: SODIUM CHLORIDE 0.9% 1,000 ML IV SCH ×5 (08:25→23:00)
[2021-08-29] MEDS: DILTIAZEM INJ 100 MG in SODIUM CHLORIDE 0.9% 100 ML IV SCH ×3 (08:26→21:00)
[2021-08-29] MEDS ORDERED: MAGNESIUM SULF RIDER 2 GM/50 ML PREMIX IV ONE (08:27)
[2021-08-29] MEDS ORDERED: POTASSIUM CHLORIDE 20 MEQ TABLET PO ONE (08:27)
[2021-08-29 09:28] LABS: Lactic Acid 1.4 MMOL/L (0.4-2.0)
[2021-08-29] MEDS: PANTOPRAZOLE 40 MG VIAL IV SCH ×2 (10:36→23:24)
[2021-08-29] MEDS: LACTULOSE 20 GM/30 ML UDCUP PO SCH (10:37)
[2021-08-29] MEDS: MULTIVITAMIN (CENTRUM) TABLET PO SCH (10:38)
[2021-08-29] MEDS: CARBIDOPA/LEVODOPA 25-100 MG TABLET PO SCH ×3 (10:38→16:56)
[2021-08-29] MEDS: FERROUS SULFATE 325 MG TABLET PO SCH (10:38)
[2021-08-29] MEDS: ATORVASTATIN 20 MG TABLET PO SCH (10:38)
[2021-08-29] MEDS: allopurinoL 100 MG TABLET PO SCH (10:38)
[2021-08-29] MEDS: MULTIVITAMIN (OCUVITE) TABLET PO SCH (10:38)
[2021-08-29] MEDS: ASPIRIN EC 81 MG TABLET PO SCH (10:38)
[2021-08-29] MEDS: METOPROLOL TARTRATE 25 MG TABLET PO SCH ×2 (10:38→16:56)
[2021-08-29] MEDS: POTASSIUM CHLORIDE 20 MEQ TABLET PO SCH (10:39)
[2021-08-29] MEDS: DILTIAZEM CD 120 MG CAPSULE PO SCH (10:39)
[2021-08-29] MEDS: ENOXAPARIN 30 MG/0.3 ML SYRINGE SUBCUT SCH (10:40)
[2021-08-29] MEDS: FLUTICASONE 50 MCG NASAL SPRAY 16 GM BOTTLE BOTH NARES SCH (11:00)
[2021-08-29] MEDS: MEGESTROL 40 MG TABLET PO SCH (12:39)
[2021-08-29] MEDS: AMOXICILLIN/CLAV 875 MG TABLET PO SCH (23:24)
[2021-08-30 05:24] LABS: Basophils # 0.1 10*3/uL (0.0-0.2); Basophils % 0.5 % (0.0-0.8); Eosinophils # 0.3 10*3/uL (0.0-0.87); Eosinophils % 2.1 % (0.00-10.9); Hematocrit 30.5 VOL% (35.7-47.0); Hemoglobin 9.2 GM/DL (12.0-16.0); Immature Granulocytes % 4.2 %; Immature Granulocytes Absolute 0.51 #; Lymphocytes % 7.7 % (21.3-54.2); Mean Corpuscular HGB Conc 30.2 GM/DL (32-36); Mean Platelet Volume 8.4 FL (9.6-12.0); Neutrophils % 79.5 % (38.7-73.9); Platelet Count 183 T/CUMM (130-400); Red Blood Count 3.28 MC/CUMM (3.8-5.5); Red Cell Distribution Width 17.9 % (9.3-17.3); White Blood Count 12.3 T/CUMM (4-12)
[2021-08-30] MEDS: LEVOTHYROXINE 100 MCG TABLET PO SCH (05:34)
[2021-08-30 05:49] LABS: Calcium 8.6 MG/DL (8.5-10.1); Potassium 3.1 MMOL/L (3.5-5.1)
[2021-08-30 07:43] LABS: Anisocytosis 1+; Band Neutrophils 4 % (0-10); Burr Cells Few; Eosinophils 4 % (0-10); Lymphocytes 9 % (20-55); Macrocytosis Slight; Metamyelocytes 2 %; Platelet Estimate Normal; Segmented Neutrophils 75 % (50-85); Total Cells Counted 100
[2021-08-30] MEDS ORDERED: LACTULOSE 20 GM/30 ML UDCUP PO SCH (09:00)
[2021-08-30] MEDS: MULTIVITAMIN (CENTRUM) TABLET PO SCH (10:00)
[2021-08-30] MEDS: METOPROLOL TARTRATE 25 MG TABLET PO SCH ×2 (10:01→16:53)
[2021-08-30] MEDS: MULTIVITAMIN (OCUVITE) TABLET PO SCH (10:01)
[2021-08-30] MEDS: DOCUSATE SODIUM 100 MG CAPSULE PO SCH ×2 (10:01→21:00)
[2021-08-30] MEDS: DILTIAZEM CD 120 MG CAPSULE PO SCH (10:01)
[2021-08-30] MEDS: FERROUS SULFATE 325 MG TABLET PO SCH (10:01)
[2021-08-30] MEDS: allopurinoL 100 MG TABLET PO SCH (10:01)
[2021-08-30] MEDS: CARBIDOPA/LEVODOPA 25-100 MG TABLET PO SCH ×3 (10:01→16:53)
[2021-08-30] MEDS: AMOXICILLIN/CLAV 875 MG TABLET PO SCH ×2 (10:02→21:00)
[2021-08-30] MEDS: ATORVASTATIN 20 MG TABLET PO SCH (10:02)
[2021-08-30] MEDS: POTASSIUM CHLORIDE 20 MEQ TABLET PO SCH (10:02)
[2021-08-30] MEDS: ASPIRIN EC 81 MG TABLET PO SCH (10:02)
[2021-08-30] MEDS: POTASSIUM CHLORIDE 20 MEQ TABLET PO PRN (10:02)
[2021-08-30] MEDS: LACTULOSE 20 GM/30 ML UDCUP PO SCH ×2 (10:03→21:00)
[2021-08-30] MEDS: FLUTICASONE 50 MCG NASAL SPRAY 16 GM BOTTLE BOTH NARES SCH (10:12)
[2021-08-30] MEDS: SODIUM CHLORIDE 0.9% 1,000 ML IV SCH (10:12)
[2021-08-30] MEDS: MEGESTROL 40 MG TABLET PO SCH (10:12)
[2021-08-30] MEDS: POLYETHYLENE GLYCOL POWDER 17 GM PACK PO SCH ×2 (10:13→21:00)
[2021-08-30] MEDS ORDERED: ALBUTEROL/IPRATROPIUM 3 ML NEB RESP TX ONE (10:14)
[2021-08-30] MEDS: PANTOPRAZOLE 40 MG VIAL IV SCH ×2 (10:36→21:00)
[2021-08-30] MEDS: ENOXAPARIN 30 MG/0.3 ML SYRINGE SUBCUT SCH (10:36)
[2021-08-30] MEDS: MORPHINE 2 MG/1 ML SYRINGE IV PRN ×3 (10:37→22:21)
[2021-08-30] MEDS ORDERED: LORazepam 2 MG/1 ML VIAL IV PRN (12:02)
[2021-08-30] MEDS ORDERED: FUROSEMIDE 20 MG/2 ML VIAL IV ONE (12:17)
[2021-08-30] MEDS ORDERED: MORPHINE 2 MG/1 ML SYRINGE ONE (13:47)
[2021-08-30] MEDS: DILTIAZEM INJ 100 MG in SODIUM CHLORIDE 0.9% 100 ML IV SCH (20:59)
[2021-08-31] MEDS: MORPHINE 2 MG/1 ML SYRINGE IV PRN ×4 (00:35→12:44)
[2021-08-31] MEDS: LEVOTHYROXINE 100 MCG TABLET PO SCH (05:36)
[2021-08-31 05:40] LABS: Basophils # 0.1 10*3/uL (0.0-0.2); Basophils % 0.6 % (0.0-0.8); Eosinophils # 0.3 10*3/uL (0.0-0.87); Eosinophils % 2.4 % (0.00-10.9); Hematocrit 29.7 VOL% (35.7-47.0); Immature Granulocytes % 4.2 %; Immature Granulocytes Absolute 0.51 #; Lymphocytes # 1.3 10*3/uL (1.4-4.0); Lymphocytes % 10.6 % (21.3-54.2); Mean Corpuscular HGB Conc 30.3 GM/DL (32-36); Mean Corpuscular Volume 92.2 FL (87-102); Mean Platelet Volume 8.6 FL (9.6-12.0); Monocytes % 6.8 % (1.7-12.7); NRBC # 0.04 10*3/uL; Neutrophils % 75.4 % (38.7-73.9); Platelet Count 202 T/CUMM (130-400); Red Blood Count 3.22 MC/CUMM (3.8-5.5); White Blood Count 12.2 T/CUMM (4-12)
[2021-08-31 06:17] LABS: Calcium 8.6 MG/DL (8.5-10.1); Osmolality,Calculated 288.8 MOS/KG (273-304); Potassium 3.5 MMOL/L (3.5-5.1)
[2021-08-31 06:43] LABS: Anisocytosis 2+; Band Neutrophils 2 % (0-10); Eosinophils 2 % (0-10); Lymphocytes 12 % (20-55); Metamyelocytes 1 %; Myelocytes 1 %; Nucleated Red Blood Cells 2 (0-5); Platelet Estimate Normal; Segmented Neutrophils 77 % (50-85); Total Cells Counted 100
[2021-08-31 06:44] LABS: Ovalocytes Few; Polychromasia Slight; Tear Drop Cells Few
[2021-08-31] MEDS: PANTOPRAZOLE 40 MG VIAL IV SCH ×2 (09:11→21:05)
[2021-08-31] MEDS: FERROUS SULFATE 325 MG TABLET PO SCH (09:15)
[2021-08-31] MEDS: ASPIRIN EC 81 MG TABLET PO SCH (09:15)
[2021-08-31] MEDS: allopurinoL 100 MG TABLET PO SCH (09:15)
[2021-08-31] MEDS: DILTIAZEM CD 120 MG CAPSULE PO SCH (09:15)
[2021-08-31] MEDS: DOCUSATE SODIUM 100 MG CAPSULE PO SCH ×2 (09:15→20:56)
[2021-08-31] MEDS: METOPROLOL TARTRATE 25 MG TABLET PO SCH ×2 (09:15→16:28)
[2021-08-31] MEDS: MULTIVITAMIN (CENTRUM) TABLET PO SCH (09:15)
[2021-08-31] MEDS: POTASSIUM CHLORIDE 20 MEQ TABLET PO SCH (09:15)
[2021-08-31] MEDS: MULTIVITAMIN (OCUVITE) TABLET PO SCH (09:15)
[2021-08-31] MEDS: AMOXICILLIN/CLAV 875 MG TABLET PO SCH ×2 (09:15→21:06)
[2021-08-31] MEDS: LACTULOSE 20 GM/30 ML UDCUP PO SCH ×2 (09:16→21:06)
[2021-08-31] MEDS: CARBIDOPA/LEVODOPA 25-100 MG TABLET PO SCH ×3 (09:16→16:28)
[2021-08-31] MEDS: MEGESTROL 40 MG TABLET PO SCH (09:16)
[2021-08-31] MEDS: ATORVASTATIN 20 MG TABLET PO SCH (09:16)
[2021-08-31] MEDS: ENOXAPARIN 30 MG/0.3 ML SYRINGE SUBCUT SCH (09:16)
[2021-08-31] MEDS: FLUTICASONE 50 MCG NASAL SPRAY 16 GM BOTTLE BOTH NARES SCH (10:09)
[2021-08-31] MEDS: POLYETHYLENE GLYCOL POWDER 17 GM PACK PO SCH ×2 (10:09→20:56)
[2021-08-31] MEDS: DILTIAZEM INJ 100 MG in SODIUM CHLORIDE 0.9% 100 ML IV SCH (20:55)
[2021-09-01] MEDS: MORPHINE 2 MG/1 ML SYRINGE IV PRN ×4 (01:33→14:41)
[2021-09-01] MEDS: LEVOTHYROXINE 100 MCG TABLET PO SCH (05:08)
[2021-09-01] MEDS: CARBIDOPA/LEVODOPA 25-100 MG TABLET PO SCH ×2 (09:23→14:42)
[2021-09-01] MEDS: METOPROLOL TARTRATE 25 MG TABLET PO SCH (09:23)
[2021-09-01] MEDS: POTASSIUM CHLORIDE 20 MEQ TABLET PO SCH (09:24)
[2021-09-01] MEDS: allopurinoL 100 MG TABLET PO SCH (09:24)
[2021-09-01] MEDS: MULTIVITAMIN (CENTRUM) TABLET PO SCH (09:24)
[2021-09-01] MEDS: ASPIRIN EC 81 MG TABLET PO SCH (09:24)
[2021-09-01] MEDS: ENOXAPARIN 30 MG/0.3 ML SYRINGE SUBCUT SCH (09:26)
[2021-09-01] MEDS: DOCUSATE SODIUM 100 MG CAPSULE PO SCH (09:26)
[2021-09-01] MEDS: PANTOPRAZOLE 40 MG VIAL IV SCH (09:27)
[2021-09-01] MEDS: MULTIVITAMIN (OCUVITE) TABLET PO SCH (09:31)
[2021-09-01] MEDS: POLYETHYLENE GLYCOL POWDER 17 GM PACK PO SCH (09:31)
[2021-09-01] MEDS: LACTULOSE 20 GM/30 ML UDCUP PO SCH (09:48)
[2021-09-01] MEDS: DILTIAZEM CD 120 MG CAPSULE PO SCH (09:48)
[2021-09-01] MEDS: AMOXICILLIN/CLAV 875 MG TABLET PO SCH (09:48)
[2021-09-01] MEDS: ATORVASTATIN 20 MG TABLET PO SCH (09:48)
[2021-09-01] MEDS: MEGESTROL 40 MG TABLET PO SCH (09:48)
[2021-09-01] MEDS: FLUTICASONE 50 MCG NASAL SPRAY 16 GM BOTTLE BOTH NARES SCH (10:16)
[2021-09-01] MEDS: FERROUS SULFATE 325 MG TABLET PO SCH (10:16)
[2021-09-01 14:20] VITALS: BP 117/76
== END 2021-09-01 16:10 | DRG 374 ==
LOC: EDBD → EDUNIT# → N.ED 17:58 → N.EDINP 21:45 → SUATTDRO 21:45 → N.3E 23:15 → N.TELEN 08-25 20:29
PROVIDERS: ADMIT Internal Medicine; ATTEND Internal Medicine